=== PATIENT | male | born 1950 | race Caucasian/White ===

== ENCOUNTER 2020-03-16 11:52 | Outpatient (CLI) | payer MEDICARE, OTHER, SELFPAY ==
[2020-03-16 12:12] VITALS: BP 133/82; PULSE 78; RESP 16; TEMP 37.1; O2SAT 95; BMI 31.5
--- NOTE | 2020-03-16 12:56 | W.ED.COVID ---
HPI - COVID General: Chief Complaint: Infusion Cele Stated Complaint: COVID +/Infusion/Sent from Time Seen by Provider: 03/16/20 12:44 Triage information: No fever, cough or shortness of breath. Exposure to COVID + person last 14 days History of Present Illness: HPI Narrative: Patient tested positive earlier this week at Dr. Brown's office she is coming in today for a monoclonal antibody infusion. He actually has very minimal to no no shortness of breath we discussed infusion criteria. MD complaint: known COVID positive COVID 19 common symptoms: positive fever(s), chills, cough and non-productive cough; negative throat pain, nasal congestion, nausea, vomiting or diarrhea COVID 19 other sytmptoms: negative chest pain Onset (ago): day(s) Severity: mild Pertinent comorbid conditions: COPD/respiratory disease and obesity Treatment prior to arrival: none COVID Results: No Data to Display Review of Systems Const: Reports: fever(s) ENMT: Denies: throat pain, ear or mastoid pain, nasal discharge or nasal congestion Card: Denies: chest pain, edema, dyspnea on exertion or orthopnea Resp: Reports: non-productive cough GI: Denies: abdominal pain, nausea, vomiting, hematemesis, coffee ground emesis, diarrhea, constipation, bloating, hematochezia or melena : Denies: flank pain, dysuria, urinary frequency or urinary urgency Skin/Breast: Denies: rash or pruritus [facility] PFSH: Medical History (Updated 03/16/20 @ 14:20 by Osbaldo Wheat DO) COPD (chronic obstructive pulmonary disease) Physical Exam Const: COMMON NORMALS: no acute distress GENERAL APPEARANCE: cooperative and comfortable ORIENTATION/CONSCIOUSNESS: Yes awake, Yes oriented to person, Yes oriented to place and Yes oriented to time HENMT: COMMON NORMALS: normocephalic, atraumatic and hearing grossly normal bilaterally HEAD & SCALP: normocephalic and atraumatic Neck/C-Spine: COMMON NORMALS: no JVD Resp: COMMON NORMALS: normal respiratory effort, No retractions, No use of accessory muscles and clear to auscultation bilaterally AUSCULTATION: clear to auscultation bilaterally Cardio: COMMON NORMALS: no JVD, regular rate, regular rhythm and No murmurs present (Cardio) RATE: regular rate RHYTHM: regular rhythm GI: COMMON NORMALS: Soft to palpation and No hepatosplenomegaly present AUSCULTATION: Yes normoactive bowel sounds PALPATION: Yes Soft to palpation, No Tenderness to palpation present (GI), No Guarding due to palpation present (GI) and Yes No hepatosplenomegaly present Extremity: COMMON NORMALS: normal to inspection, capillary refill normal, no clubbing, cyanosis or edema, no calf tenderness and no pedal edema Neuro: SENSORIUM/ORIENTATION: Yes oriented to person, Yes oriented to place and Yes oriented to time Skin: COMMON NORMALS: no rashes or lesions noted GENERAL SKIN EXAM: no rashes or lesions noted Course Vital Signs: Vital signs: Vital Signs Temperature 97.3 F L 03/16/20 14:03 Pulse Rate 67 03/16/20 14:17 Respiratory Rate 18 03/16/20 14:17 Blood Pressure 134/77 03/16/20 14:17 Pulse Oximetry 94 03/16/20 14:17 MDM - COVID MDM Narrative: Medical decision making narrative: Informed consent obtained for monoclonal antibody infusion patient wishes to proceed oxygen sats in the 93 to 94% range patient otherwise has no other significant symptoms he does meet criteria due to age and comorbid diseases will have him go over to outpatients for infusion. COVID Results: No Data to Display Monoclonal Antibody Treatments Inclusion/Exclusion Criteria weight >/= 40 kg and + direct Sars-Cov-2 test less than 7-10 days ago age >/= 65 not requiring hospitalization and not requiring oxygen (if not chronically on oxygen) Patient education patient/family/caregiver received/reviewed fact sheet, Emergency Use Authorization/unapproved drug status discussed with patient/family/caregiver, alternatives to this treatment discussed with patient/family/caregiver, risks and benefits of medication reviewed with patient/family/caregiver, patient/family/caregiver given opportunity for questions, which were answered and patient consents to receiving Monoclonal Antibody Treatment Plan for treatment Meets criteria for Monoclonal Antibody infusion Ordering Monoclonal Antibody infusion for today Discharge Plan Discharge Patient Disposition: Home Clinical Impression: COVID-19 Condition: Stable Discharge Orders: Discharge ED (Routine); Ordered 03/16/20 Ordered By: Osbaldo Wheat Coding Level of Care Code ED Computer Project Manager for Brenda Warren
[2020-03-16 14:03] VITALS: BP 137/95; PULSE 73; RESP 18; TEMP 36.3; O2SAT 93
[2020-03-16 14:05] VITALS: BMI 31.5
[2020-03-16 14:17] VITALS: BP 134/77; PULSE 67; RESP 18; O2SAT 94
[2020-03-16 14:31] VITALS: BP 135/94; PULSE 69; RESP 18; O2SAT 96
[2020-03-16 15:05] VITALS: BP 128/64; PULSE 74; RESP 18; TEMP 36.5; O2SAT 94
--- NOTE | 2020-03-16 15:08 | SUR.OPER ---
1500 BAM infusion complete. Pt tolerated well. VSS. No signs of hypersensitivity noted. Pt to wait 1 hour for observation. Report given to Ila SALDANA. Pt called and updated.
[2020-03-16 16:15] VITALS: BP 131/72; PULSE 75; RESP 18; TEMP 36.6; O2SAT 98
--- NOTE | 2020-03-21 11:59 | DCPLANNER ---
Addendum entered by Chanel Story 03/29/20 14:30: called on 03.29.20 - unable to speak with patient at [phone] and [phone]. Addendum entered by Chanel Story 03/21/20 12:11: exhibits manager called patient for the 48 hour check up, patient stated that he is feeling really good. Patient stated no fever, no cough, doing really good. exhibits manager called the office of Dr. Sullivan, patient has a followup appointment scheduled for Saturday, March 28, 2020 at 10:00 with [employer]oxana. exhibits manager called patient and informed patient of the scheduled appointment. Original Note: late entry - 03.15.20 exhibits manager received notification that patient had received the BAM infusion. Patient stated that he tolerated infusion ok. Stated that before infusion he ran a low grade fever, has not had a loss of taste or smell, he did have a small cough, he was not tired or not weak. Patient stated that after the infusion he still has not lost his sense of taste, but nothing tastes good, he is not running a fever. Patient will need a follow up appointment scheduled with Dr. Sullivan, casework specialist will call on Saturday, 03.21.20 to schedule an appointment.
== END 2020-03-16 16:15 | disposition home or self-care (01) ==
LOC: ER 12:55 → OPS 13:57
PROVIDERS: Emergency Provider Family Medicine; PCP Family Medicine; Visit Provider Family Medicine
DX: U07.1 COVID-19 (principal); J44.9 Chronic obstructive pulmonary disease, unspecified; E66.9 Obesity, unspecified
CPT/HCPCS: 12345; 96365; 99281; J7050

== ENCOUNTER → 2022-08-16 15:23 | Outpatient (BNVA) | payer MEDICARE, OTHER, SELFPAY | PROVIDERS: PCP Family Medicine; Visit Provider Family Medicine | DX: I10 Essential (primary) hypertension (principal); E78.5 Hyperlipidemia, unspecified; M19.90 Unspecified osteoarthritis, unspecified site; F32.A Depression, unspecified | CPT/HCPCS: 80053 ==

== ENCOUNTER → 2023-07-25 13:12 | Outpatient (BNVA) | payer MEDICARE, OTHER, SELFPAY | PROVIDERS: PCP Family Medicine; Visit Provider Family Medicine | DX: R73.9 Hyperglycemia, unspecified (principal); I10 Essential (primary) hypertension; E78.5 Hyperlipidemia, unspecified; R11.0 Nausea; R53.83 Other fatigue; R63.4 Abnormal weight loss; E11.9 Type 2 diabetes mellitus without complications | CPT/HCPCS: 80053; 80061; 83036; 83690; 83880; 84443; 84550; 85025; 85651; 86140 ==